=== PATIENT | female | born 2000 | race Caucasian/White ===

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

== ENCOUNTER 2025-01-04 15:58 | Outpatient (REF) | payer BC, SELFPAY | END 2025-01-04 15:59 | disposition home or self-care (01) | LOC: LBN 15:58 | PROVIDERS: Visit Provider Physician Assistant Medical | DX: J02.9 Acute pharyngitis, unspecified (principal) | CPT/HCPCS: 87070 ==

== ENCOUNTER 2025-02-17 21:06 | Outpatient (REF) | payer BC, SELFPAY ==
[2025-02-17 19:43] LABS: HCT 41.6 % (36.0-46.0); HGB 14.3 g/dL (11.2-15.7); MCH 30.8 pg (27.0-33.0); MCHC 34.4 % (32.0-36.0); MCV 90 fL (80-95); MPV 11.1 fL (8.0-11.0); Platelet Count 330 10^3/uL (130-400); RBC 4.64 10^6/uL (3.93-5.22); RDW 11.9 % (11.7-14.6); RDW-SD 38.9 fL; WBC 13.39 10^3/uL (4.4-10.8)
[2025-02-17 19:57] LABS: ALT 92 U/L (14-59); AST 40 U/L (15-37); Albumin 4.3 g/dL (3.4-5.0); Alkaline Phosphatase 89 U/L (46-116); Anion Gap 10.2 mmol/L (3-11); BUN 10 mg/dL (7-18); Bilirubin, Total 0.5 mg/dL (0.2-1.0); CO2 25.8 mmol/L (21.0-32.0); CREATININE 0.5 mg/dL (0.55-1.02); Calcium 9.4 mg/dL (8.5-10.1); Chloride 103 mmol/L (98-107); Estimated GFR 135.91 (mL/min/1.73m2); Glucose 104 mg/dL (74-106); Potassium 4.3 mmol/L (3.5-5.1); Sodium 139 mmol/L (136-145); TSH (W/Ref FT4) 3.05 uIU/mL (0.36-3.74); Total Protein 7.7 g/dL (6.4-8.2)
[2025-02-17 20:11] LABS: Hemoglobin A1C 5.7 % (<5.7)
== END 2025-02-17 21:07 | disposition home or self-care (01) ==
LOC: NCHCN 21:06
PROVIDERS: Visit Provider Nurse Practitioner Family
DX: N92.6 Irregular menstruation, unspecified (principal); R03.0 Elevated blood-pressure reading, without diagnosis of hypertension
CPT/HCPCS: 80053; 85027; 83036; 84443

== ENCOUNTER 2025-04-21 12:41 | Outpatient (REF) | payer BC, SELFPAY ==
[2025-04-21 15:43] LABS: ALT 112 U/L (14-59); AST 51 U/L (15-37); Albumin 4.1 g/dL (3.4-5.0); Alkaline Phosphatase 82 U/L (46-116); Anion Gap 8.6 mmol/L (3-11); BUN 6 mg/dL (7-18); Bilirubin, Total 0.3 mg/dL (0.2-1.0); CO2 26.4 mmol/L (21.0-32.0); Calcium 9.5 mg/dL (8.5-10.1); Chloride 104 mmol/L (98-107); Estimated GFR 129.27 (mL/min/1.73m2); Glucose 130 mg/dL (74-106); Potassium 4.6 mmol/L (3.5-5.1); Sodium 139 mmol/L (136-145); Total Protein 7.4 g/dL (6.4-8.2)
== END 2025-04-21 12:42 | disposition home or self-care (01) ==
LOC: NCHCN 12:41
PROVIDERS: PCP Nurse Practitioner Family; Visit Provider Nurse Practitioner Family
DX: R74.01 Elevation of levels of liver transaminase levels (principal)
CPT/HCPCS: 80053

== ENCOUNTER 2025-08-07 14:17 | Outpatient (REF) | payer BC, SELFPAY | END 2025-08-07 14:18 | disposition home or self-care (01) | LOC: LBN 14:17 | PROVIDERS: PCP Nurse Practitioner Family; Visit Provider Nurse Practitioner Acute Care | DX: J02.9 Acute pharyngitis, unspecified (principal) | CPT/HCPCS: 87070 ==